=== PATIENT | male | born 1935 | race Caucasian/White ===

== ENCOUNTER → 2016-08-29 | Outpatient (CLI) | payer MEDICARE, OTHER | END | disposition home or self-care (01) | LOC: PCVCCLINIC 11:13 | PROVIDERS: ATTEND Internal Medicine Cardiovascular Disease | DX: E78.00 Pure hypercholesterolemia, unspecified (principal); I10 Essential (primary) hypertension; M48.00 Spinal stenosis, site unspecified; N40.1 Benign prostatic hyperplasia with lower urinary tract symptoms; N13.8 Other obstructive and reflux uropathy; M25.552 Pain in left hip; I25.10 Atherosclerotic heart disease of native coronary artery without angina pectoris; Z79.82 Long term (current) use of aspirin; Z79.899 Other long term (current) drug therapy; Z88.8 Allergy status to other drugs, medicaments and biological substances | CPT/HCPCS: 93005; G0463 ==

== ENCOUNTER → 2017-01-29 | Outpatient (CLI) | payer MEDICARE, OTHER | END | disposition home or self-care (01) | LOC: PCVCCLINIC 14:30 → MERGE 14:30 | PROVIDERS: ATTEND Internal Medicine Cardiovascular Disease | DX: I25.10 Atherosclerotic heart disease of native coronary artery without angina pectoris (principal); R93.1 Abnormal findings on diagnostic imaging of heart and coronary circulation; I10 Essential (primary) hypertension; E78.00 Pure hypercholesterolemia, unspecified; I87.2 Venous insufficiency (chronic) (peripheral); Z87.891 Personal history of nicotine dependence; Z79.82 Long term (current) use of aspirin; Z79.899 Other long term (current) drug therapy | CPT/HCPCS: 93005; G0463 ==

== ENCOUNTER → 2017-02-03 | Outpatient (CLI) | payer MEDICARE, OTHER ==
--- NOTE | 2017-02-03 09:52 | PCVCIMAG ---
APPROVED REPORT Study performed: 02/03/2017 09:04:28 EXAM: Comprehensive 2D, Doppler, and color-flow Echocardiogram Patient Location: Echo lab Status: routine BSA: 2.06 HR: 83 bpmBP: 160/90 mmHg Rhythm: NSR Other Information Study Quality: Adequate Risk Factors: Cardiac Risk Factors: HTN, Hyperlipidemia Indications Coronary atherosclerosis by elevated calcium score 2D Dimensions LVEF(%): 48.10 (>50%) IVSd: 14.07 (7-11mm)LVOT Diam: 21.35 (18-24mm) LVDd: 45.68 mm PWd: 14.53 (7-11mm)Ascending Ao: 32.95 (22-36mm) LVDs: 34.66 (25-40mm) Left Atrium: 36.85 (27-40mm) Aortic Root: 28.44 mm LV Single Plane 4CH: 68.76 % LV Single Plane 2CH: 62.22 %Pathak's LVEF: 65.49 % Biplane EF: 64.4 % Volumes Left Atrial Volume (Systole) Single Plane 4CH: 84.05 mLSingle Plane 2CH: 56.59 mL LA ESV Index: 34.00 mL/m2 Aortic Valve AoV Peak Randall.: 1.55 m/s AO Peak Gr.: 9.63 mmHgLVOT Max P.06 mmHg LVOT Max V: 1.01 m/s DONELL Vmax: 2.32 cm2 Mitral Valve E/A Ratio: 0.7 MV Decel. Time: 232.99 ms MV E Max Randall.: 0.99 m/s MV A Randall.: 1.42 m/s IVRT: 107.27 ms Pulmonary Valve PV Peak Gr.: 2.44 mmHg Tricuspid Valve TR Peak Randall.: 2.38 m/s TR Peak Gr.: 22.57 mmHg Left Ventricle The left ventricle is normal size. There is normal LV segmental wall motion. There is normal left ventricular wall thickness. Left ventricular systolic function is normal. The left ventricular ejection fraction is within the normal range. LVEF is 65%. Grade I - abnormal relaxation pattern. Right Ventricle The right ventricle is normal size. The right ventricular systolic function is normal. Atria The left atrium size is normal. The right atrium size is normal. Aortic Valve The aortic valve is normal in structure. No aortic regurgitation is present. There is no aortic valvular stenosis. Mitral Valve Severe mitral annular calcification. Moderately calcified mitral leaflets without stenosis. Trace mitral regurgitation. No evidence of mitral valve stenosis. Tricuspid Valve The tricuspid valve is normal in structure. Mild tricuspid regurgitation with PAP of 30 mmHg. Pulmonic Valve The pulmonary valve is normal in structure. There is no pulmonic valvular regurgitation. Great Vessels The aortic root is normal in size. IVC is normal in size and collapses with >50% inspiration Pericardium There is no pericardial effusion. <Conclusion> The left ventricle is normal size. There is normal left ventricular wall thickness. LVEF is 65%. Grade I - abnormal relaxation pattern. The right ventricle is normal size. The left atrium size is normal. The aortic valve is normal in structure. Severe mitral annular calcification. Moderately calcified mitral leaflets without stenosis. Trace mitral regurgitation. Mild tricuspid regurgitation with PAP of 30 mmHg. There is no pericardial effusion.
--- NOTE | 2017-02-03 14:09 | PCVCIMAG ---
EXAM: BILATERAL RENAL ULTRASOUND AND BILATERAL RENAL DUPLEX INDICATION: Hypertension FINDINGS: Right kidney: Length measures 12.0 cm. No hydronephrosis or extensive renal scarring. Incidental note is made of a 1.1 cm shadowing stone in the lower pole. Right renal duplex: Adequate technical quality. No sonographic evidence of renal artery stenosis. The aortic to renal artery ratio is 1.7. The renal vein is patent. Left kidney: Length measures 12.6 cm. No hydronephrosis or extensive renal scarring. Left renal duplex: Adequate technical quality. No sonographic evidence of renal artery stenosis. The aortic to renal artery ratio is 1.8. The renal vein is patent. Bladder: No obvious abnormalities. IMPRESSION: No significant renal artery stenosis. No hydronephrosis bilaterally. Nonobstructing right lower pole 1.1 cm calculus. LOC:[id number]
== END | disposition home or self-care (01) ==
LOC: PCVCIMAG 08:30
PROVIDERS: ATTEND Internal Medicine Cardiovascular Disease
DX: I08.1 Rheumatic disorders of both mitral and tricuspid valves (principal); I25.10 Atherosclerotic heart disease of native coronary artery without angina pectoris; I10 Essential (primary) hypertension; E83.59 Other disorders of calcium metabolism; E78.5 Hyperlipidemia, unspecified
CPT/HCPCS: 76770; 93306; 93975

== ENCOUNTER → 2017-06-23 | Outpatient (CLI) | payer MEDICARE | END | disposition home or self-care (01) | LOC: PCVCCLINIC 11:10 | DX: I10 Essential (primary) hypertension (principal); E78.00 Pure hypercholesterolemia, unspecified; R93.1 Abnormal findings on diagnostic imaging of heart and coronary circulation; I87.2 Venous insufficiency (chronic) (peripheral); Z82.49 Family history of ischemic heart disease and other diseases of the circulatory system; Z87.891 Personal history of nicotine dependence; Z79.82 Long term (current) use of aspirin | CPT/HCPCS: 80061; 93005; G0463 ==

== ENCOUNTER → 2017-12-01 | Outpatient (CLI) | payer MEDICARE ==
--- NOTE | 2017-12-01 12:27 | PCVCIMAG ---
APPROVED REPORT Study performed: 12/01/2017 10:24:29 Exam: Stress Echocardiogram Indication: Hyperlipidemia, Hypertension, Abnormal Calcium Score Patient Location: Echo lab Stress Nurse: Charmaine Villagran RN Status: routine Ht: 5 ft 11 in HR: 65 bpm BP: 160/90 mmHg Rhythm: NSR Medical History Medical History: Hyperlipidemia, HTN Procedure The patient underwent an Exercise Stress Test using the Azar Protocol. Blood pressure, heart rate, and EKG were monitored. An Echocardiogram was performed by office machine technician in four stages in quad fashion. At peak stress, four selected images were obtained and placed side by side with resting images for comparison. Stress Test Details Stress Test: Exercise stress testing was performed using a Azar protocol. HR Resting HR: 65 bpmMax Heart Rate (APMHR): 137 bpm Max HR Achieved: 125 bpmTarget HR (85% APMHR): 116 bpm % of APMHR: 91 HR response to stress: Normal HR response to stress BP Resting BP: 160/90 mmHg Max BP: 172/76 mmHg ECG Resting ECG: Sinus Rhythm Stress ECG: Sinus Rhythm Recovery ECG: Sinus Rhythm Clinical Reason for Termination: Maximal effort Exercise duration: 6 min sec Highest Stage Achieved: Stage 2: 2.5 mph at 12% grade. Exercise capacity: 7.00 METs Overall Exercise Capacity for Age: Normal Pre-Stress Echo The resting Echocardiogram showed normal left ventricular contractility with an estimated Ejection Fraction of about >55%. Post-Stress Echo The stress Echocardiogram showed normal left ventricular contractility with an estimated Ejection Fraction of about 60-65%. Conclusion Clinical Response: Non-ischemic Exercise Capacity: Average Stress ECG Response: Non-ischemic Stress Echo Images: Non-ischemic Other Information Study Quality: Good
== END | disposition home or self-care (01) ==
LOC: PCVCIMAG 13:24
PROVIDERS: ATTEND Internal Medicine Cardiovascular Disease
DX: I10 Essential (primary) hypertension (principal); I25.10 Atherosclerotic heart disease of native coronary artery without angina pectoris; E78.5 Hyperlipidemia, unspecified
CPT/HCPCS: 93325; 93351

== ENCOUNTER → 2018-08-31 | Outpatient (CLI) | payer MEDICARE | END | disposition home or self-care (01) | LOC: PCVCCLINIC 10:00 | PROVIDERS: ATTEND Internal Medicine Cardiovascular Disease | DX: E78.00 Pure hypercholesterolemia, unspecified (principal); I10 Essential (primary) hypertension | CPT/HCPCS: 36415; 80061; 93005; G0463 ==

== ENCOUNTER → 2018-12-01 | Outpatient (CLI) | payer MEDICARE ==
--- NOTE | 2018-12-01 11:49 | PCVCIMAG ---
APPROVED REPORT Study performed: 12/01/2018 09:55:18 Exam: Stress Echocardiogram Indication: Hypertension, Hyperlipidemia Patient Location: Echo lab Stress Nurse: Valerie Preciado RN Status: routine Ht: 5 ft 11 in HR: 64 bpm BP: 168/64 mmHg Rhythm: NSR Procedure The patient underwent an Exercise Stress Test using the Azar Protocol. Blood pressure, heart rate, and EKG were monitored. An Echocardiogram was performed by health care sanitary technician in four stages in quad fashion. At peak stress, four selected images were obtained and placed side by side with resting images for comparison. Stress Test Details Stress Test: Exercise stress testing was performed using a Azar protocol. HR Resting HR: 64 bpmMax Heart Rate (APMHR): 136 bpm Max HR Achieved: 126 bpmTarget HR (85% APMHR): 115 bpm % of APMHR: 92 Recovery HR: 79 bpm HR response to stress: Normal HR response to stress BP Resting BP: 168/64 mmHg Max BP: 180/86 mmHg Recovery BP: 180/86 mmHg BP response to stress: Normal blood pressure response to stress. ECG Resting ECG: Sinus Rhythm Stress ECG: Sinus Rhythm ST Change: Normal Arrhythmia: rare PVC Recovery ECG: Sinus Rhythm Recovery ST Change: Normal Recovery Arrhythmia: None Clinical Reason for Termination: Maximal effort Stress Symptoms: Dyspnea Exercise duration: 5 min sec Highest Stage Achieved: Stage 2: 2.5 mph at 12% grade. Exercise capacity: 7 METs Overall Exercise Capacity for Age: Normal Scale: Sedentary Angina Score: None Pre-Stress Echo The resting Echocardiogram showed normal left ventricular contractility with an estimated Ejection Fraction of about >55%. The resting echocardiogram demonstrated normal wall motion in all wall segments. Post-Stress Echo The stress Echocardiogram showed normal left ventricular contractility with an estimated Ejection Fraction of about 60-65%. Compared to rest, there were no stress-induced wall motion abnormalities. Clinical No clinical or ECG evidence for ischemia. Conclusion Clinical Response: Non-ischemic Exercise Capacity: Average Stress ECG Response: Non-ischemic Stress Echo Images: Non-ischemic The left ventricle is normal in size and moderate LVH in both the rest and stress images. Moderate mitral leaflet calcification with mild regurgitation and no stenosis. Mild aortic sclerosis without stenosis or regurgitation. Mild tricuspid regurgitation with PAP of 41 mmHg and trace pulmonic regurgitation. Other Information Study Quality: Adequate <Conclusion> The left ventricle is normal in size and moderate LVH in both the rest and stress images. Moderate mitral leaflet calcification with mild regurgitation and no stenosis. Mild aortic sclerosis without stenosis or regurgitation. Mild tricuspid regurgitation with PAP of 41 mmHg and trace pulmonic regurgitation.
== END | disposition home or self-care (01) ==
LOC: PCVCIMAG 09:54
PROVIDERS: ATTEND Internal Medicine Cardiovascular Disease
DX: I08.3 Combined rheumatic disorders of mitral, aortic and tricuspid valves (principal); I11.9 Hypertensive heart disease without heart failure; E78.5 Hyperlipidemia, unspecified; E78.00 Pure hypercholesterolemia, unspecified; R93.1 Abnormal findings on diagnostic imaging of heart and coronary circulation; I87.2 Venous insufficiency (chronic) (peripheral); N40.1 Benign prostatic hyperplasia with lower urinary tract symptoms; N13.8 Other obstructive and reflux uropathy; M25.552 Pain in left hip; M48.00 Spinal stenosis, site unspecified; Z82.49 Family history of ischemic heart disease and other diseases of the circulatory system
CPT/HCPCS: 93325; 93351